=== PATIENT | male | born 1965 | race African-American/Black ===

== ENCOUNTER 2019-07-10 04:48 | Emergency (ER) | payer BC ==
[2019-07-10 05:37] LABS: Basophils % 0.7 % (0-1.3); Hematocrit 38.1 % (39.6-49.0); RBC Red Blood Cell Count 4.37 M/uL (4.33-5.43)
[2019-07-10] MEDS ORDERED: KETOROLAC 30 MG/ML INJ ONE (05:44)
[2019-07-10 06:16] LABS: Albumin 3.6 g/dL (3.4-5.0); Bilirubin Direct 0.1 mg/dL (0-0.2); Bilirubin Total 0.6 mg/dL (0.2-1.0); Potassium 3.7 mmol/L (3.5-5.1); Protein, Total 6.9 g/dL (6.4-8.2)
[2019-07-10 06:36] LABS: Urine Blood NEGATIVE (NEG); Urine Glucose NEGATIVE (NEG); Urine Protein 2+ (NEG); Urine Specific Gravity >1.030 (1.005-1.030); Urine pH 5.5 (5.0-7.0)
--- NOTE | 2019-07-10 06:36 | EDPHYS ---
Physician Documentation [facility] Name: Devan Carmichael Age: 53 yrs Sex: Male : 1965 Arrival Date: 07/10/2019 Time: 04:50 Bed 18 Private MD: Krunal Lind ED Physician Dano Archuleta HPI: 07/11 04:32 This 53 yrs old Black Male presents to ER via Ambulatory with complaints of Back Pain, tw4 Groin Pain. 04:32 The patient presents with pain that is chronic, with no known mechanism of injury. The tw4 symptoms are located in the right mid back. Onset: The symptoms/episode began/occurred 2 week(s) ago. Onset: The symptoms/episode began/occurred and became persistent just prior to arrival. The pain radiates to the right femoral area and right inguinal area. Associated signs and symptoms: The patient has no apparent associated signs or symptoms. The problem was sustained without known cause. Severity of symptoms: At their worst the symptoms were moderate, in the emergency department the symptoms are unchanged. The patient has not experienced similar symptoms in the past. The patient has been recently seen by a physician: the patient's primary care provider, yesterday. Historical: - Allergies: 07/10 05:06 No Known Allergies; rr5 - Home Meds: 05:06 losartan oral oral [Active]; vacepa [Active]; rr5 - PMHx: 05:06 cholesterol; Hypertension; rr5 - PSHx: 05:06 shoulder surgery; rr5 - Immunization history:: Adult Immunizations up to date. - Social history:: Smoking status: Patient/guardian denies using tobacco, Patient uses alcohol, occasionally. Patient/guardian denies using street drugs. - Ebola Screening: : Patient negative for fever greater than or equal to 101.5 degrees Fahrenheit, and additional compatible Ebola Virus Disease symptoms Patient denies exposure to infectious person Patient denies travel to an Ebola-affected area in the 21 days before illness onset. ROS: 07/11 04:32 Constitutional: Negative for fever, chills, and weight loss, Eyes: Negative for injury, tw4 pain, redness, and discharge, Cardiovascular: Negative for chest pain, palpitations, and edema, Respiratory: Negative for shortness of breath, cough, wheezing, and pleuritic chest pain, Abdomen/GI: Negative for abdominal pain, nausea, vomiting, diarrhea, and constipation. MS/Extremity: Negative for injury and deformity, Skin: Negative for injury, rash, and discoloration. Back: Positive for flank pain. Exam: 04:32 Constitutional: This is a well developed, well nourished patient who is awake, alert, tw4 and in no acute distress. Head/Face: Normocephalic, atraumatic. Chest/axilla: Normal chest wall appearance and motion. Nontender with no deformity. No lesions are appreciated. Cardiovascular: Regular rate and rhythm with a normal S1 and S2. No gallops, murmurs, or rubs. Normal PMI, no JVD. No pulse deficits. Respiratory: Lungs have equal breath sounds bilaterally, clear to auscultation and percussion. No rales, rhonchi or wheezes noted. No increased work of breathing, no retractions or nasal flaring. Abdomen/GI: Soft, non-tender, with normal bowel sounds. No distension or tympany. No guarding or rebound. No evidence of tenderness throughout. 04:32 MS/ Extremity: Pulses equal, no cyanosis. Neurovascular intact. Full, normal range of motion. Neuro: Awake and alert, GCS 15, oriented to person, place, time, and situation. Cranial nerves II-XII grossly intact. Motor strength 5/5 in all extremities. Sensory grossly intact. Cerebellar exam normal. Normal gait. 04:32 Back: CVA tenderness, is noted on the right. Vital Signs: 07/10 05:00 BP 167 / 118; Pulse 56; Resp 18; Temp 98.4; Pulse Ox 99% ; Weight 122.47 kg; Height 6 rr5 ft. 1 in. (185.42 cm); Pain 3/10; 05:50 BP 169 / 67; Pulse 62; Resp 17; Pulse Ox 100% on R/A; Pain 3/10; rr5 06:47 BP 151 / 75; Pulse 58; Resp 17; Temp 97.1; Pulse Ox 99% on R/A; rr5 05:00 Body Mass Index 35.62 (122.47 kg, 185.42 cm) rr5 MDM: 05:43 Patient medically screened. tw4 07/11 04:34 Data reviewed: vital signs, nurses notes. Data interpreted: Pulse oximetry: tw4 Interpretation: normal. Counseling: I had a detailed discussion with the patient and/or guardian regarding: the historical points, exam findings, and any diagnostic results supporting the discharge/admit diagnosis. Special discussion: I discussed with the patient/guardian in detail that at this point there is no indication for admission to the hospital. It is understood, however, that if the symptoms persist or worsen the patient needs to return immediately for re-evaluation. 07/10 04:53 Order name: Basic Metabolic Panel [facility] 07/10 04:53 Order name: CBC with Diff tw4 07/10 04:53 Order name: Creatinine for Radiology tw 07/10 04:53 Order name: Hepatic Function [facility] 07/10 04:53 Order name: Lipase tw 07/10 04:53 Order name: Urine Microscopic Only [facility] 07/10 04:53 Order name: IV Saline Lock; Complete Time: 05:22 [facility] 07/10 04:53 Order name: Labs collected and sent; Complete Time: 05:22 [facility] 07/10 04:53 Order name: Urine Dipstick-Ancillary (obtain specimen); Complete Time: 06:23 [facility] 07/10 04:53 Order name: CT Stone Protocol [facility] 07/10 04:54 Order name: Basic Metabolic Panel [facility] 07/10 04:54 Order name: CBC with Automated Diff [facility] 07/10 06:19 Order name: Urine Dipstick--Ancillary (enter results) ar5 Administered Medications: 07/10 05:47 Drug: TORadol 30 mg Route: IVP; Site: right antecubital; rr5 06:48 Follow up: Response: No adverse reaction rr5 Disposition: 07/10/19 06:35 Discharged to Home. Impression: Hematuria, unspecified. - Condition is Stable. - Discharge Instructions: Hematuria, Adult, Kidney Stones. - Prescriptions for Ibuprofen 800 mg Oral Tablet - take 1 tablet by ORAL route every 8 hours As needed take with food; 30 tablet. Tylenol- Codeine #3 300-30 mg Oral Tablet - take 2 tablet by ORAL route every 6 hours As needed; 6 tablet. - Medication Reconciliation Form, Thank You Letter, Antibiotic Education, Prescription Opioid Use form. - Follow up: Krunal Lind MD; When: Upon discharge from the Emergency Department; Reason: If symptoms return, Recheck today's complaints, Continuance of care. - Problem is new. - Symptoms have improved. Signatures: Dispatcher [employer] Dano Rodriguez MD MD tw4 Virgil Peralta, RN RN rr5 Corrections: (The following items were deleted from the chart) 06:49 06:35 07/10/2019 06:35 Discharged to Home. Impression: Hematuria, unspecified. rr5 Condition is Stable. Forms are Medication Reconciliation Form, Thank You Letter, Antibiotic Education, Prescription Opioid Use. Follow up: Krunal Lind; When: Upon discharge from the Emergency Department; Reason: If symptoms return, Recheck today's complaints, Continuance of care. Problem is new. Symptoms have improved. tw4
--- NOTE | 2019-07-10 06:36 | ER ---
Nurse's Notes [facility] Name: Devan Carmichael Age: 53 yrs Sex: Male : 1965 Arrival Date: 07/10/2019 Time: 04:50 Bed 18 Private MD: Krunal Lind Diagnosis: Hematuria, unspecified Presentation: 07/10 05:00 Presenting complaint: Patient states: I am having right lower back pain radiating to rr5 groin area. pain score 3/10 but when i move its 10/10, started couple of days ago. i went to dr. alves 2 weeks ago for the lower back pain prescribed muscle relaxant and pain reliever after a week i came back to him with the same complaint he suspect kidney stone i have done ultrasound of the kidney yesterday but i have not got result yet. Transition of care: patient was not received from another setting of care. Onset of symptoms was June 26, 2019. Risk Assessment: Do you want to hurt yourself or someone else? Patient reports no desire to harm self or others. Initial Sepsis Screen: Does the patient meet any 2 criteria? No. Patient's initial sepsis screen is negative. Does the patient have a suspected source of infection? No. Patient's initial sepsis screen is negative. Care prior to arrival: Medication(s) given: muscle relaxant and pain reliever. 05:00 Method Of Arrival: Ambulatory rr5 05:00 Acuity: WILLIAM 3 rr5 Historical: - Allergies: 05:06 No Known Allergies; rr5 - Home Meds: 05:06 losartan oral oral [Active]; vacepa [Active]; rr5 - PMHx: 05:06 cholesterol; Hypertension; rr5 - PSHx: 05:06 shoulder surgery; rr5 - Immunization history:: Adult Immunizations up to date. - Social history:: Smoking status: Patient/guardian denies using tobacco, Patient uses alcohol, occasionally. Patient/guardian denies using street drugs. - Ebola Screening: : Patient negative for fever greater than or equal to 101.5 degrees Fahrenheit, and additional compatible Ebola Virus Disease symptoms Patient denies exposure to infectious person Patient denies travel to an Ebola-affected area in the 21 days before illness onset. Screenin:06 Abuse screen: Denies threats or abuse. Denies injuries from another. Nutritional rr5 screening: No deficits noted. Tuberculosis screening: No symptoms or risk factors identified. Fall Risk IV access (20 points). Total Silva Fall Scale indicates No Risk (0-24 pts). Assessment: 05:00 General: Appears in no apparent distress. uncomfortable, Behavior is calm, cooperative, rr5 appropriate for age. Pain: Complains of pain in back Pain radiates to groin Pain currently is 3 out of 10 on a pain scale. Quality of pain is described as aching, Pain began gradually, Is intermittent. Neuro: Level of Consciousness is awake, alert, obeys commands, Oriented to person, place, time, situation, Appropriate for age. Cardiovascular: Capillary refill < 3 seconds Patient's skin is warm and dry. Respiratory: Airway is patent Respiratory effort is even, unlabored, Respiratory pattern is regular, symmetrical. GI: No signs and/or symptoms were reported involving the gastrointestinal system. : Reports pain groin. EENT: No signs and/or symptoms were reported regarding the EENT system. Derm: Skin is intact, Skin temperature is warm. Musculoskeletal: Circulation, motion, and sensation intact. Capillary refill < 3 seconds, Reports pain in right low back Pain is 3 out of 10 on a pain scale. 06:00 Reassessment: Patient appears in no apparent distress at this time. Patient and/or rr5 family updated on plan of care and expected duration. Pain level reassessed. Patient is alert, oriented x 3, equal unlabored respirations, skin warm/dry/pink. awaiting for results. 06:45 Reassessment: Patient appears in no apparent distress at this time. Patient is alert, rr5 oriented x 3, equal unlabored respirations, skin warm/dry/pink. discharge instruction given and explained without complaints made. Patient states symptoms have improved. Vital Signs: 05:00 BP 167 / 118; Pulse 56; Resp 18; Temp 98.4; Pulse Ox 99% ; Weight 122.47 kg; Height 6 rr5 ft. 1 in. (185.42 cm); Pain 3/10; 05:50 BP 169 / 67; Pulse 62; Resp 17; Pulse Ox 100% on R/A; Pain 3/10; rr5 06:47 BP 151 / 75; Pulse 58; Resp 17; Temp 97.1; Pulse Ox 99% on R/A; rr5 05:00 Body Mass Index 35.62 (122.47 kg, 185.42 cm) rr5 ED Course: 04:50 Patient arrived in ED. am2 04:50 Virgil Peralta, RN is Primary Nurse. rr5 04:50 Krunal Lind MD is Private Physician. am2 05:04 Triage completed. rr5 05:06 Arm band placed on. rr5 05:10 Inserted saline lock: 20 gauge in right antecubital area, using aseptic technique. rr5 ,using aseptic technique. by jennifer bio medical technician Blood collected. 05:22 Patient has correct armband on for positive identification. Bed in low position. Call rr5 light in reach. Pulse ox on. NIBP on. 05:36 CT Stone Protocol In Process Unspecified. EDTX 05:43 Dano Archuleta MD is Attending Physician. tw4 06:34 Krunal Lind MD is Referral Physician. tw4 06:48 No provider procedures requiring assistance completed. IV discontinued, intact, rr5 bleeding controlled, No redness/swelling at site. Pressure dressing applied. Administered Medications: 05:47 Drug: TORadol 30 mg Route: IVP; Site: right antecubital; rr5 06:48 Follow up: Response: No adverse reaction rr5 Outcome: 06:35 Discharge ordered by MD. tw4 06:48 Discharged to home ambulatory. rr5 06:48 Condition: stable 06:48 Discharge instructions given to patient, Instructed on discharge instructions, follow up and referral plans. medication usage, Demonstrated understanding of instructions, follow-up care, medications, Prescriptions given X 2. 06:49 Patient left the ED. rr5 Signatures: Dispatcher [employer] [facility] Kaci Pratt 2 Dano Archuleta MD MD tw4 Virgil Peralta, RN RN rr5
[2019-07-10 07:06] LABS: Urine Bacteria <20 /HPF (NONE SEEN); Urine Culture Reflex Order NOT NEEDED; Urine RBC <5 /HPF (NONE SEEN)
--- NOTE | 2019-07-12 10:07 | RAD REPORT ---
EXAM DESCRIPTION: CT Abdomen and Pelvis Without Intravenous Contrast CLINICAL HISTORY: The patient is 53 years old and is Male; FLANK PAIN TECHNIQUE: Axial computed tomography images of the abdomen and pelvis without intravenous contrast. Sagittal and coronal reformatted images were created and reviewed. This CT exam was performed usi ng one or more of the following dose reduction techniques: automated exposure control, adjustment o f the mA and/or kV according to patient size, and/or use of iterative reconstruction technique. COMPARISON: No relevant prior studies available. FINDINGS: LUNG BASES: Unremarkable. No mass. No consolidation. ABDOMEN: LIVER: Homogeneous without focal mass. GALLBLADDER AND BILE DUCTS: No calcified stones. No ductal dilation. PANCREAS: Unremarkable. No ductal dilation. SPLEEN: Unremarkable. ADRENALS: Unremarkable. No mass. KIDNEYS AND URETERS: No obstructing stones. No hydronephrosis. STOMACH AND BOWEL: The stomach is decompressed. The small bowel is relatively normal in caliber. Stool is present throughout the colon. Scattered colonic diverticula are noted without surrounding i nflammation. There is no mucosal thickening or evidence of bowel obstruction. PELVIS: APPENDIX: The appendix is normal in caliber without surrounding inflammation. BLADDER: Unremarkable. No stones. REPRODUCTIVE: Unremarkable as visualized. ABDOMEN and PELVIS: INTRAPERITONEAL SPACE: Unremarkable. No free air. No significant fluid collection. BONES/JOINTS: Minimal degenerative change of the spine is present. SOFT TISSUES: Small fat-containing umbilical hernia is present. VASCULATURE: Unremarkable. No abdominal aortic aneurysm. LYMPH NODES: Unremarkable. No enlarged lymph nodes. IMPRESSION: No acute findings on this noncontrasted CT of the abdomen and pelvis to explain the mars ent's symptoms. Electronically signed by: Karon Del Valle MD 07/10/2019 6:06 AM CDT Due to temporary technical issues with the PACS/Fluency reporting system, reports are being signed by the in house radiologist as a courtesy to ensure prompt reporting. The interpreting radiologist is f ully responsible for the content of the report.
== END 2019-07-10 06:49 | disposition home or self-care (01) ==
LOC: ER 04:48
DX: R31.9 Hematuria, unspecified (principal); I10 Essential (primary) hypertension
CPT/HCPCS: 36415; 74176; 76377; 80048; 80076; 81003; 81015; 83690; 85025; 96374; 99284